=== PATIENT | male | born 1990 | race African-American/Black ===

== ENCOUNTER 2020-11-20 11:08 | Emergency (ER) | payer OTHER ==
[~2020-11-20] VITALS: Ht 175.3 cm; Wt 63.5 kg
[2020-11-20 11:08] VITALS: BP 120/72
--- NOTE | 2020-11-20 13:04 | NUR ---
PT LEFT W/OUT BEING SEEN BY ED PROVIDER.
== END 2020-11-20 13:08 | disposition left against medical advice (07) ==
LOC: ER 11:23
DX: Z53.21 Procedure and treatment not carried out due to patient leaving prior to being seen by health care provider (principal); M79.671 Pain in right foot; J45.909 Unspecified asthma, uncomplicated

== ENCOUNTER 2020-12-13 16:07 | Emergency (ER) | payer OTHER ==
[~2020-12-13] VITALS: Ht 167.6 cm; Wt 63.5 kg
--- NOTE | 2020-12-13 16:15 | NUR ---
DENICE H[place]- ETOH. The patient is alert and oriented x3. Denies pain. In room air and denies SOB. Respiration regular and unlabored. The patient is attached to the monitor. Warm blanket provided for comfort. Will continue to monitor the patient. Addendum: 12/13/20 at 1637 by LINH STEVIE NEVILLE MADE AWARE TOO
--- NOTE | 2020-12-13 16:27 | NUR ---
The patient refused IV insertion, blood draw and start of fluids. Dr Donahue made aware
[2020-12-13] MEDS ORDERED: IV NS 0.9% 1,000 ML BAG IV ONE (16:30)
--- NOTE | 2020-12-13 16:30 | NUR ---
The patient is alert and oriented x3. Denies pain. In room air and denies SOB. Respiration regular and unlabored. The patient is noted to have stable gait and walking outside carrying his belonging. The patient is asked to remain in the hospital. Risks and benefits explained but the patient insisted to leave and did not want to be stoped. Patient does not wish to proceed with medical care recommended by Dr. Donahue and [facility] [employer] TE[employer]ER Anne Marie. Patient given information related to possible complications, up to and including , which could occur as a result of leaving the hospital at this time. Patient verbalizes understanding of risks involved due to leaving against medical advice. Patient refused to sign AMA form.
--- NOTE | 2020-12-13 16:30 | NUR ---
ECG NOT DONE DUE TO AMA
[2020-12-13 16:45] VITALS: BP 129/64
== END 2020-12-13 16:46 | disposition left against medical advice (07) ==
LOC: ER 16:12
DX: F10.129 Alcohol abuse with intoxication, unspecified (principal); R45.1 Restlessness and agitation; R94.31 Abnormal electrocardiogram [ECG] [EKG]; J45.909 Unspecified asthma, uncomplicated; Z88.6 Allergy status to analgesic agent; Z59.00 Homelessness unspecified; Y90.9 Presence of alcohol in blood, level not specified
CPT/HCPCS: 93005; 99283; J7030